=== PATIENT | female | born 1970 | race Caucasian/White ===

== ENCOUNTER 2018-07-09 11:00 | Outpatient (CLI) | payer BC ==
[~2018-07-09] VITALS: Ht 170.2 cm; Wt 96.2 kg
[2018-07-09] MEDS ORDERED: THIA100T66 PO (11:11)
[2018-07-09] MEDS ORDERED: LEVO125T6 PO (11:11)
[2018-07-09] MEDS ORDERED: THYR30TA21 PO (11:11)
[2018-07-09] MEDS ORDERED: LACT1CAP72 PO (11:11)
[2018-07-09] MEDS ORDERED: LORA10TA76 PO (11:11)
[2018-07-09] MEDS ORDERED: hormone PO (11:11)
[2018-07-09] MEDS ORDERED: ESCI10TA PO (11:11)
[2018-07-09] MEDS ORDERED: MAGN400T39 PO (11:11)
[2018-07-09] MEDS ORDERED: CALC600T12 PO (11:11)
== END 2018-07-09 11:40 ==
LOC: PREOP 11:00
PROVIDERS: ATTEND Obstetrics & Gynecology
DX: Z01.818 Encounter for other preprocedural examination (principal)

== ENCOUNTER 2018-07-13 08:52 | Day surgery (SDC) | payer BC ==
[~2018-07-13] VITALS: Ht 170.2 cm; Wt 96.2 kg
[2018-07-13] VITALS (15 sets, daily range): BP systolic 86–127; BP diastolic 46–95
[~2018-07-13 08:52] MED LIST: CALC600T12 PO; ESCI10TA PO; LACT1CAP72 PO; LEVO125T6 PO; LORA10TA76 PO; MAGN400T39 PO; THIA100T66 PO; THYR30TA21 PO; hormone PO
--- OUTSIDE RECORDS SUMMARY | 2018-07-13 08:55 | XMS REPORT | Continuity of Care Document ---
Author Organization Unknown Address Unknown Allergies Active Description Code Type Severity Reaction Onset Reported/Identified Relationship to Patient Clinical Status Yes No Known Drug Allergies [id number] Drug Allergy Unknown N/A 07/09/2018 Medications There is no data. Problems Date Dx Coded Attending Type Code Diagnosis Diagnosed By 07/09/2018 ARMIN LIRIANO DO Ot Z01.818 ENCOUNTER FOR OTHER PREPROCEDURAL EXAMIN 07/09/2018 ARMIN LIRIANO DO Ot Z01.818 ENCOUNTER FOR OTHER PREPROCEDURAL EXAMIN 07/09/2018 ARMIN LIRIANO DO Ot Z01.818 ENCOUNTER FOR OTHER PREPROCEDURAL EXAMIN 07/09/2018 ARMIN LIRIANO DO Ot Z01.818 ENCOUNTER FOR OTHER PREPROCEDURAL EXAMIN 07/09/2018 ARMIN LIRIANO DO Ot Z01.818 ENCOUNTER FOR OTHER PREPROCEDURAL EXAMIN Procedures There is no data. Results There is no data. Encounters ACCT No. Visit Date/Time Discharge Status Pt. Type Provider Facility Loc./Unit Complaint [id number] 07/09/2018 11:00:00 07/09/2018 11:40:00 DIS Outpatient ARMIN LIRIANO DO [facility] PREOP INCOMPLETE VAGINAL PROLAPSE [id number] 07/13/2018 11:00:00 PEN Preadmit ARMIN LIRIANO DO [facility] SDC INCOMPLETE VAGINAL PROLAPSE
[2018-07-13] MEDS ORDERED: ceFAZolin INJECTION 1,000 MG in WATER (STERILE) FOR INJECTION 10 ML IV ONE (09:15)
[2018-07-13] MEDS ORDERED: metroNIDAZOLE 500MG/100ML IVPB 100 ML IV ONE (09:15)
[2018-07-13 09:16] LABS: BASOPHILS % (AUTO) 0 % (0-10); EOSINOPHILS # (AUTO) 0.1 10^3/uL (0.0-0.3); EOSINOPHILS % (AUTO) 1 % (0-10); HEMATOCRIT 43 % (35-52); HEMOGLOBIN 14.8 G/DL (11.5-16.0); LYMPHOCYTES # (AUTO) 2.4 X 10^3 (1.0-4.0); LYMPHOCYTES % (AUTO) 38 % (12-44); MEAN CORPUSCULAR HEMOGLOBIN 30 PG (25-34); MEAN CORPUSCULAR HGB CONC 34 G/DL (32-36); MEAN CORPUSCULAR VOLUME 87 FL (80-99); MEAN PLATELET VOLUME 9.7 FL (7.4-10.4); MONOCYTES # (AUTO) 0.5 X 10^3 (0.0-1.0); MONOCYTES % (AUTO) 9 % (0-12); NEUTROPHILS # (AUTO) 3.3 X 10^3 (1.8-7.8); NEUTROPHILS % (AUTO) 52 % (42-75); PLATELET COUNT 271 10^3/uL (130-400); RED CELL DISTRIBUTION WIDTH 13.8 % (10.0-14.5); WHITE BLOOD COUNT 6.3 10^3/uL (4.3-11.0)
[2018-07-13 09:17] LABS: BILIRUBIN,URINE NEGATIVE (NEGATIVE); CLARITY,URINE CLEAR; COLOR,URINE YELLOW; GLUCOSE, URINE (UA) NEGATIVE (NEGATIVE); KETONES,URINE NEGATIVE (NEGATIVE); LEUKOCYTE ESTERASE ,URINE NEGATIVE (NEGATIVE); NITRITE,URINE NEGATIVE (NEGATIVE); PH,URINE 7 (5-9); PROTEIN,URINE NEGATIVE (NEGATIVE); UROBILINOGEN,URINE NORMAL (NORMAL)
[2018-07-13] MEDS: LACTATED RINGERS 1,000 ML IV PRN ×2 (09:25→11:15)
[2018-07-13 09:36] LABS: BACTERIA,URINE TRACE /HPF; RBC,URINE RARE /HPF; WBC,URINE 0-2 /HPF
[2018-07-13] MEDS ORDERED: SEVOFLURANE (ULTANE) 15 ML INHAL SOLN ONE ×6 (09:44→11:48)
[2018-07-13] MEDS ORDERED: DEXAMETHASONE 10 MG/ML (DECADRON) 1 ML VIAL ONE (09:44)
[2018-07-13] MEDS ORDERED: ONDANSETRON 4 MG/2 ML (SDV) Z0FRAN ONE (09:44)
[2018-07-13] MEDS ORDERED: LIDOCAINE PF 2% 5 ML (XYLOCAINE) VIAL ONE (09:44)
[2018-07-13] MEDS ORDERED: proPOfol 200 MG/20 ML (DIPRIVAN) VIAL IV ONE (09:44)
[2018-07-13] MEDS ORDERED: fentaNYL INJECTION 100 MCG/2 ML AMP ONE ×2 (09:45→12:34)
[2018-07-13] MEDS ORDERED: MIDAZOLAM 2 MG/2 ML (VERSED) VIAL ONE (09:45)
[2018-07-13] MEDS ORDERED: VASOPRESSIN INJECTION 20 UNIT/ML VIAL ONE ×2 (09:51→09:52)
[2018-07-13] MEDS ORDERED: NS (IVPB) 100 ML ONE (09:53)
[2018-07-13] MEDS ORDERED: ESTRADIOL VAGINAL CREAM 42.5 GM (ESTRACE) VG ONE (09:54)
--- NOTE | 2018-07-13 10:13 | Progress Note-Pre Operative ---
Pre-Operative Progress Note H&P Reviewed The H&P was reviewed, patient examined and no changes noted. Date Seen by Provider: Jul 13, 2018 Time Seen by Provider: 10:10 Date H&P Reviewed: Jul 13, 2018 Time H&P Reviewed: 10:10 Pre-Operative Diagnosis: incomplete genital prolapse, anterior posterior colporrhaphy, stress incont ARMIN LIRIANO DO Jul 13, 2018 10:13
[2018-07-13] MEDS ORDERED: ONDANSETRON 4 MG/2 ML (SDV) Z0FRAN IVP PRN (10:30)
[2018-07-13] MEDS ORDERED: fentaNYL INJECTION 100 MCG/2 ML AMP IVP ONE (10:30)
[2018-07-13] MEDS ORDERED: MEPERIDINE (DEMEROL) INJ 50 MG/ML IVP ONE (10:30)
[2018-07-13] MEDS ORDERED: morphine INJ 10 MG/ML 1ML (SYR OR VIAL) IVP ONE (10:30)
[2018-07-13] MEDS ORDERED: morphine INJ 10 MG/ML 1ML (SYR OR VIAL) ONE (11:41)
[2018-07-13] MEDS ORDERED: BUPIVACAINE 0.25% 30 ML (SENSORCAINE) VIAL ONE ×2 (11:42→11:44)
[2018-07-13] MEDS: KETOROLAC 30 MG/ML VIAL IV SCH ×3 (11:50→23:44)
[2018-07-13] MEDS ORDERED: KETOROLAC 30 MG/ML VIAL ONE (11:51)
[2018-07-13] MEDS ORDERED: MILK OF MAGNESIA 400 MG/5 ML 30 ML UDC PO PRN (12:15)
--- NOTE | 2018-07-13 12:21 | Operative Report ---
Operative Report Date of Procedure/Surgery Jul 13, 2018 Surgeon (s) ARMIN LIRIANO DO [place] Assistant (s): Alissa Fabian, MS III Post-Operative Diagnosis same Procedure Performed anterior posterior colporrhaphy, Solyx sling, excision of bilateral skin tags Description of Procedure Anesthesia Type: General Estimated blood loss (mL): 150 Specimen(s) collected/removed none Description of the Procedure With informed consent, the patient was taken to the operating room where general anesthesia was found to be adequate. She was prepped and draped in the usual sterile fashion in the dorsolithotomy position. The Monet catheter was placed in the bladder. She had previous hysterectomy. A Lonestar retractor was placed and sutured at 12 o'clock. Two Kaylin clamps were placed on either side of the perineum. I then injected the anterior and posterior epithelium with Vasopressin. I then made a midline incision and dissected the vaginal epithelium off of the posterior pubovaginal fascia. I dissected this laterally. I then repaired the rectocele defect with interrupted mattress stitches of 2-0 Vicryl in interrupted fashion. This reduced the rectocele. I then excised the excess vaginal epithelium and closed the posterior defect up to the perineum with 2-0 vicryl in running fashion. Now, the anterior vaginal epithelium was grasped in the midline with an Allis clamp. The anterior vaginal epithelium was injected with dilute vasopressin. I made a midline vaginal incision and then dissected the epithelium off the pubovaginal fascia laterally to the white line. I then repaired the cystocele with 2-0 Vicryl in interrupted, mattress type fashion. I did this in two layers , reducing the cystocele. I then excised the excess vaginal epithelium and closed the defect with 2-0 Vicryl in a running fashion. Then a 1 cm incision was made in the suburethral space with a scalpel about 1.5 cm from the urethral meatus. I dissected bilaterally to the obturator membranes and then inserted the Solyx bilaterally and then tightened under the midurethra. I did a cystoscopy which was negative. There was bilateral urethral efflux of urine. I then kept 300 ml in the bladder and did a Cred. There was minimal leakage. The sling laid gently under the urethra and was not too tight. There was no intravesicular pathology. The incision was closed with 4-0 Monocryl in a running fashion. Monet was reinserted. I now did a small perineorrhaphy by removing a small pyramidal area and then closing in standard fashion with 2-0 Vicryl. the lonestar was removed There were small (< 5mm ) skin tags on bilateral inner thighs. These were injected with 0.25% Marcaine and then excised at the skin and cauterized. Vaginal pack with Estrace cream was placed. Patient was awakened and taken to the recovery room in stable condition. Findings of the Procedure 3-4 + rectocele 3+ cystocele > 50 degree rotation of the urethra small bilateral skin tags in the inner thighs. Allergies and Home Medications Allergies Coded Allergies: No Known Drug Allergies (Unverified , 07/09/18) Home Medications Calcium Carbonate 600 Mg Tablet, 600 MG PO DAILY, (Reported) Escitalopram Oxalate 10 Mg Tablet, 10 MG PO DAILY, (Reported) Lactobacillus Combo No.10 1 Each Capsule, 1 EACH PO DAILY, (Reported) Levothyroxine Sodium 125 Mcg Tablet, 125 MCG PO DAILY, (Reported) Loratadine 10 Mg Tablet, 10 MG PO DAILY, (Reported) Magnesium Oxide 400 Mg Tablet, 400 MG PO DAILY, (Reported) Thiamine HCl 100 Mg Tablet, 100 MG PO DAILY, (Reported) Thyroid,Pork 30 Mg Tablet, 30 MG PO DAILY, (Reported) [hormone] , 1 EA PO DAILY, (Reported) COMPOUNDED MED: BI-ESTROGEN(80% ESTRIOL,20% ESTRADIOL)PROGESTERONE/ TESTOSTERONE Patient Home Medication List Home Medication List Reviewed: Yes ARMIN LIRIANO DO Jul 13, 2018 12:20
--- NOTE | 2018-07-13 12:34 | Anesthesia-General Post-Op ---
General Patient Condition Mental Status/LOC: Same as Preop Cardiovascular: Satisfactory Nausea/Vomiting: Absent Respiratory: Satisfactory Pain: Controlled Complications: Absent Post Op Complications Complications None Follow Up Care/Instructions Patient Instructions None needed. Anesthesia/Patient Condition Patient Condition Patient is doing well, no complaints, stable vital signs, no apparent adverse anesthesia problems. No complications reported per nursing. LACIE JOAQUIN CRNA Jul 13, 2018 12:34
--- NOTE | 2018-07-13 13:10 | NUR ---
STEFAN AHMADI admitted to room 3304-1 VIA BED ACC BY [facility] AFTER AN ANTERIOR AND POSTERIOR REPAIR, PUBOVAGINAL SLING WITH CYSTOSCOPY, AND REMOVAL OF BILATERAL PERINEAL SKIN TAGS TODAY BY DR. LIRIANO. STEFAN AHMADI introduced to surroundings, call light, bed controls, phone, TV, temperature control, lights, meal times, smoking policy, visitor policy, side rail policy, bathrooms and showers. Patient Rights given to patient in the handbook.
--- NOTE | 2018-07-13 13:30 | NUR ---
CONTINUOUS SPO2 MONITORING. PT AWAKE AND ALERT. FAMILY AT BEDSIDE.
--- NOTE | 2018-07-13 14:30 | NUR ---
DR. LIRIANO IN TO SEE PT.
--- NOTE | 2018-07-13 15:00 | NUR ---
CONTINUOUS SPO2 MONITORING DISCONTINUED.
--- NOTE | 2018-07-13 16:00 | NUR ---
VSS. DOING WELL. DENIES PAIN. WATCHING TV. VAGINAL PACKING IN PLACE. COPE PATENT TO DD WITH LT JUAN URINE.
[2018-07-13] MEDS: LACTATED RINGERS 1,000 ML IV SCH (17:25)
--- NOTE | 2018-07-13 18:00 | NUR ---
CONTINUES TO DO WELL. DENIES ANY PAIN. STATES SHE FEELS GREAT. VAGINAL PACKING INTACT. NO BLEEDING AROUND PACKING. COPE PATENT TO TRISTEN.
[2018-07-13] MEDS: ACETAMINOPHEN 500 MG TAB (TYLENOL) PO SCH (18:04)
--- NOTE | 2018-07-13 18:20 | NUR ---
PT MOVED TO [place] VIA BED R/T THERESANADO WARNING.
--- NOTE | 2018-07-13 18:45 | NUR ---
RETURNED TO PT ROOM VIA BED AFTER ALL CLEAR.
[2018-07-13] MEDS: DOCUSATE SODIUM 100 MG (COLACE) CAP PO SCH (23:44)
[2018-07-14] MEDS: LACTATED RINGERS 1,000 ML IV SCH (01:30)
[2018-07-14] MEDS: ACETAMINOPHEN 500 MG TAB (TYLENOL) PO SCH (03:45)
[2018-07-14 03:47] VITALS: BP 86/42
[2018-07-14 05:00] VITALS: BP 100/52
--- NOTE | 2018-07-14 05:00 | NUR ---
Pt reports "feeling heart beat in hear head for the past hour", rn asks pt to confirm if she has a throbbing head ache, pt denies and reports feeling dizzy and light headed, vss, see int. will cont to monitor.
[2018-07-14] MEDS: KETOROLAC 30 MG/ML VIAL IV SCH (06:39)
--- NOTE | 2018-07-14 06:50 | NUR ---
Pt up for first time post op, stand by assist to bathroom, tolerated well, first void after cath removal. Will cont to monitor. Addendum: 07/14/18 at 0702 by MALU TREVIZO RN Pt also reports passing gas since 229.
--- NOTE | 2018-07-14 07:55 | Anesthesia-General Post-Op ---
General Patient Condition Mental Status/LOC: Same as Preop Cardiovascular: Satisfactory Nausea/Vomiting: Absent Respiratory: Satisfactory Pain: Controlled Complications: Absent Post Op Complications Complications None Follow Up Care/Instructions Patient Instructions None needed. Anesthesia/Patient Condition Patient Condition Patient is doing well, no complaints, stable vital signs, no apparent adverse anesthesia problems. No complications reported per nursing. JERSON BEE CRNA July 14, 2018 07:54
[2018-07-14 08:00] VITALS: BP 122/63
--- NOTE | 2018-07-14 08:00 | NUR ---
A.M. ASSESSMENT COMPLETED. VSS. ANXIOUS TO GO HOME. PT HAD VOIDED PRIOR TO THIS RN COMING IN THE ROOM. UP TO VOID AGAIN. VOIDED 200 CC URINE WITH BLOOD TINGE. (FROM VAGINA). OUT TO AMBULATE IN THE [place]. MOVES WELL.
[2018-07-14] MEDS: DOCUSATE SODIUM 100 MG (COLACE) CAP PO SCH (08:23)
--- NOTE | 2018-07-14 09:30 | NUR ---
DR. LIRIANO IN TO SEE PT. PLAN FOR DISCHARGE.
[2018-07-14] MEDS ORDERED: OXC5T PO (09:39)
[2018-07-14] MEDS ORDERED: ACET-77 PO (09:39)
[2018-07-14] MEDS ORDERED: IBUP-1773 PO (09:39)
--- NOTE | 2018-07-14 09:41 | Discharge Inst-Women's Service ---
Discharge Inst-Women's Serv Depart Medication/Instructions New, Converted or Re-Newed RX: RX on Chart Instructions no lifting over 25 lbs nothing in vagina for 6 weeks Final Diagnosis cystocele rectocele stress incontinence Consults/Follow Up Additional Follow Up: Yes Activity Activity: Activity as Tolerated Driving Instructions: You May Drive (Thursday) NO SMOKING: NO SMOKING Nothing Inside Vagina: No Douching, No [place], No Tampons Diet Discharge Diet: No Restrictions Symptoms to Report to : Bleeding Excessive, Pain Increased, Constipation( Persistant), Urination Difficulty, Vaginal Bleeding Increase, Cramps in Feet or Legs, Vaginal Discharge Foul, Nausea/Vomiting For Any Problems or Questions: Contact Your Physician ARMIN LIRIANO DO July 14, 2018 09:41
--- NOTE | 2018-07-14 10:30 | NUR ---
VOIDED ANOTHER 300CC URINE.
--- NOTE | 2018-07-14 10:40 | NUR ---
DISCHARGE INSTRUCTIONS REVIEWED WITH COPY TO PT. STATES UNDERSTANDING OF ALL INSTRUCTIONS AND NEED TO F/U SCHEDULED AND NEEDED.
[2018-07-14 10:45] VITALS: BP 122/63
--- NOTE | 2018-07-14 10:45 | NUR ---
DISMISSED AMB FROM [facility] IN STABLE CONDITION TO [facility]ILY [facility] ACC BY AND LAURA MORENO RN.
--- NOTE | 2018-07-19 12:20 | Physician Query-Final Dx ---
WINTER CHANG 07/19/18 1220: Final Diagnosis Give Final Diagnosis Please give Final Diagnosis Dr Liriano Please clarify how many skin tags were removed thank you ARMIN LIRIANO DO 07/27/18 0756: Final Diagnosis Give Final Diagnosis two WINTER CHANG July 19, 2018 12:20 ARMIN LIRIANO DO July 27, 2018 07:56
== END 2018-07-14 10:45 | disposition home or self-care (01) ==
LOC: SDC 08:52 → WS 13:44 → SDC 07-14 10:45
PROVIDERS: ATTEND Obstetrics & Gynecology
DX: N81.10 Cystocele, unspecified (principal); N81.6 Rectocele; N39.3 Stress incontinence (female) (male); G47.33 Obstructive sleep apnea (adult) (pediatric); K21.9 Gastro-esophageal reflux disease without esophagitis; G57.93 Unspecified mononeuropathy of bilateral lower limbs; F32.9 Major depressive disorder, single episode, unspecified; F41.9 Anxiety disorder, unspecified; Z79.899 Other long term (current) drug therapy; Z87.891 Personal history of nicotine dependence; Z99.89 Dependence on other enabling machines and devices
CPT/HCPCS: 36415; 81000; 85025; 86850; 86900; 86901; 87081; 94664